=== PATIENT | female | born 1985 | race Caucasian/White ===

== ENCOUNTER → 2016-10-14 | Outpatient (CLI) | payer OTHER ==
--- NOTE | 2016-10-15 10:58 | MR ---
EXAMINATION TYPE: MR cervical spine wo/w con DATE OF EXAM ORDERED: 10/14/2016 2:51 PM HISTORY: M50.33 Other cervical disc degeneration, cervicoth. TECHNOLOGIST HISTORY AT TIME OF EXAM: Other cervical disc degeneration, Neck pain and stiffness IV CONTRAST: 10 of MultiHance COMPARISON: None. TECHNIQUE: Multiplanar, multiecho imaging of the cervical spine was obtained with and without the in travenous administration of 10 of MultiHance on a 1.5 vazquez magnet. FINDINGS: There has been a previous anterior metal fusion at C5, C6 and C7. Prevertebral soft tissues are normal. Vertebral body height and alignment are maintained. There is a normal craniocervical junction. Cord signal is normal. From C2-3 through to C4-5, no definite abnormality is seen. At C5-C6, this level is fused. The intervertebral foramina appear widely patent. There is a tiny cent ral disc displacement. Mildly deforming the thecal sac without cord contact. The facets are unremarka ble. The uncovertebral joints are unremarkable. At C6-C7, this level is fused. There is a tiny central disc displacement mildly deforming the thecal sac without cord contact. The intervertebral foramina are widely patent. The facets are unremarkable. There is mild uncovertebral joint disease. At C7-T1, no definite abnormality is seen. IMPRESSION: 1. POSTSURGICAL CHANGE. 2. NO SIGNIFICANT COMPRESSIVE DISCOPATHY OR NEURAL COMPRESSION.
== END ==
LOC: RADMRIMAIN 14:08
PROVIDERS: ATTEND Family Medicine
DX: M50.33 Other cervical disc degeneration, cervicothoracic region (principal); Z98.890 Other specified postprocedural states
CPT/HCPCS: 72156; A9577

== ENCOUNTER 2019-01-11 15:17 | Emergency (ER) | payer OTHER ==
--- NOTE | 2019-01-11 16:51 | XR ---
EXAMINATION TYPE: XR hand complete RT, XR wrist complete RT DATE OF EXAM: 01/11/2019 CLINICAL HISTORY: Right hand and wrist pain TECHNIQUE: Frontal, lateral and oblique images of the right hand and wrist are obtained. Scaphoid vi ew was also obtained. COMPARISON: None FINDINGS: There is no acute fracture/dislocation evident in the right hand or wrist. The joint spac es in the right hand and wrist appear within normal limits. The overlying soft tissue appears unrema rkable. IMPRESSION: There is no acute fracture or dislocation in the right hand or wrist.
--- NOTE | 2019-01-11 17:01 | ED ---
General Adult HPI - General Chief complaint: Extremity Injury, Upper Stated complaint: Hand injury Time Seen by Provider: 01/11/19 16:46 Source: patient Mode of arrival: ambulatory Limitations: no limitations - History of Present Illness Initial comments: 33-year-old female presenting after a hand injury that occurred on while at work. Patient states a very large heavy bein fell onto her right hand. Since then she's been having persistent pain, especially over the fourth and fifth metacarpal area, as well as some paresthesias. States she tried Motrin directly after the injury without relief. She was unable to work this weekend and was instructed by her boss to present to the emergency department. - Related Data Previous Rx's Medication Instructions Recorded HYDROcodone/APAP 5-325MG [[place] 1 tab PO Q6HR PRN 3 Days #12 tab 01/11/19 5-325] Ibuprofen [Motrin] 600 mg PO Q6HR PRN #30 tab 01/11/19 Allergies Allergy/AdvReac Type Severity Reaction Status Date / Time No Known Allergies Allergy Verified 01/11/19 16:24 Review of Systems ROS Statement: Those systems with pertinent positive or pertinent negative responses have been documented in the HPI. Review of Systems Constitutional: Denies fever, chills Ears, nose, mouth, throat: Denies headaches, Denies sore throat Cardiovascular: Denies chest pain. Denies palpitations Respiratory: Denies shortness of breath, Denies cough Gastrointestinal: Denies abdominal pain. Denies nausea, vomiting, diarrhea. Musculoskeletal:Positive pain, Denies swelling Integumentary: Denies rash Neurological: Denies headache, focal weakness, Positive paraesthesias ROS Other: All systems not noted in ROS Statement are negative. Past Medical History Past Medical History: No Reported History History of Any Multi-Drug Resistant Organisms: None Reported Additional Past Surgical History / Comment(s): neck c4-6 Smoking Status: Current every day smoker Past Alcohol Use History: None Reported Past Drug Use History: Marijuana General Exam - General Exam Comments Initial Comments: General: Awake, alert, No acute Distress HENT: Normocephalic. Atraumatic Eyes: EOMI. No scleral icterus. No injected conjunctiva Neck: Full ROM Chest/Lungs: No respiratory distress. Even, non-labored breathing Musculoskeletal: Full ROM. Tenderness to palpation along the 4th and 5th metacarpals.. Mild swelling to dorsal aspect of right hand. Compartments soft. No snuffbox tenderness. Skin: Warm, dry, intact Neurologic: A/Ox3, no weakness, no sensory deficit, no abnormal gait, no coordination deficit Limitations: no limitations Course Vital Signs 01/11/19 01/11/19 01/11/19 16:22 17:12 18:02 Temperature 98.7 F 98.8 F Pulse Rate 60 57 L 60 Respiratory 16 16 18 Rate Blood Pressure 156/82 151/96 137/62 O2 Sat by Pulse 98 96 96 Oximetry Procedures - Orthopedic Splinting/Casting Injury #1 Side: right Upper Extremity Injury Location: short arm Upper Extremity Immobilizer: ulnar gutter Medical Decision Making - Medical Decision Making 33-year-old female presenting with right hand pain after an injury at work last week. Initial exam the patient is awake, alert, no acute distress. VSS. X-ray showed a fourth metacarpal fracture without dislocation or angulation. Patient was placed in a ulnar gutter splint and was given orthopedic follow-up. She was neurovascularly intact. No further emergent workup indicated. The patient was given return to ED instructions. They were instructed to follow up with their primary care provider. Stable for discharge at this time. Disposition Clinical Impression: Closed fracture of 4th metacarpal Disposition: HOME SELF-CARE Condition: Good Instructions (If sedation given, give patient instructions): Hand Fracture (ED), Splint Care (ED) Prescriptions: Ibuprofen [Motrin] 600 mg PO Q6HR PRN #30 tab PRN Reason: Pain HYDROcodone/APAP 5-325MG [[place] 5-325] 1 tab PO Q6HR PRN 3 Days #12 tab PRN Reason: Pain Is patient prescribed a controlled substance at d/c from ED?: Yes If prescribed controlled substance>3 days was MAPS reviewed?: Prescribed <3 Days Referrals: Laura Russo DO [Primary Care Provider] - 1-2 days Richard Martell MD [STAFF PHYSICIAN] - 1-2 days
[2019-01-11] MEDS ORDERED: IBUPROFEN 600 MG TAB PO STA (17:06)
[2019-01-11 18:03] VITALS: BP 137/62; PULSE 60; RESP 18; TEMP 98.8
== END 2019-01-11 18:03 | disposition home or self-care (01) ==
LOC: EC 15:17
DX: S62.304A Unspecified fracture of fourth metacarpal bone, right hand, initial encounter for closed fracture (principal); F17.200 Nicotine dependence, unspecified, uncomplicated; W20.8XXA Other cause of strike by thrown, projected or falling object, initial encounter; Y92.69 Other specified industrial and construction area as the place of occurrence of the external cause; Y99.0 Civilian activity done for income or pay
CPT/HCPCS: 29125; 99283